=== PATIENT | male | born 1955 | race Caucasian/White ===

== ENCOUNTER 2022-03-12 14:03 | Outpatient (CLI) | payer BC, SELFPAY ==
[2022-03-12 11:39] LABS: Albumin* 4.4 g/dL (3.3-5.0); Chloride* 101 mmol/L (96-114); Potassium* 4.1 mmol/L (3.6-5.1); Sodium* 137 mmol/L (135-149)
[2022-03-12 11:41] LABS: Carbon Dioxide* 30 mmol/L (20-32); Cholesterol* 196 mg/dL (90-199); Creatinine* 0.8 mg/dL (0.5-1.5); Estimated Glomerular Filt Rate 98 ml/min
[2022-03-12 11:42] LABS: Alanine Aminotransferase* 23 U/L (4-50); Alkaline Phosphatase* 58 U/L (40-150); Aspartate Amino Transferase* 27 U/L (12-35); Bilirubin Total* 0.8 mg/dL (0.1-1.5); Blood Urea Nitrogen* 16 mg/dL (7-30); Glucose* 99 mg/dL (60-115); HDL Cholesterol* 80 mg/dL (>=40); LDL Cholesterol Calculated 100 mg/dL (<100); Triglycerides* 82 mg/dL (40-149)
[2022-03-12 12:11] LABS: PSA Screen* 1.65 ng/mL (0.10-4.00)
== END 2022-03-12 14:04 | disposition home or self-care (01) ==
PROVIDERS: PCP Internal Medicine; Visit Provider Internal Medicine
DX: Z00.00 Encounter for general adult medical examination without abnormal findings (principal); E78.5 Hyperlipidemia, unspecified; Z12.5 Encounter for screening for malignant neoplasm of prostate
CPT/HCPCS: 80053; 80061; 84153

== ENCOUNTER 2022-12-10 07:14 | Outpatient (CLI) | payer BC, SELFPAY ==
--- NOTE | 2022-12-10 07:55 | W.ANESCHARGE ---
Anesthesia Charges Start Date/Time Anesthesia Start Date: 12/10/22 Anesthesia Start Time: 07:55 Stop Date/Time Anesthesia Stop Date: 12/10/22 Anesthesia Stop Time: 08:35
--- NOTE | 2022-12-10 08:40 | W.ANESCHARGE ---
Anesthesia Charges Start Date/Time Anesthesia Start Date: 12/10/22 Anesthesia Start Time: 07:55 Stop Date/Time Anesthesia Stop Date: 12/10/22 Anesthesia Stop Time: 08:35
== END 2022-12-10 07:15 | disposition home or self-care (01) ==
PROVIDERS: PCP Internal Medicine; Visit Provider Internal Medicine
DX: Z12.11 Encounter for screening for malignant neoplasm of colon (principal); K57.30 Diverticulosis of large intestine without perforation or abscess without bleeding; K63.5 Polyp of colon; Z86.010 Personal history of colon polyps
CPT/HCPCS: 00811; 45380; 88305; J2704

== ENCOUNTER 2023-03-14 17:45 | Outpatient (CLI) | payer BC, SELFPAY ==
--- NOTE | 2023-03-14 18:00 | CRLHL7_ITS ---
For Patients: As a result of the Century Cures Act, medical imaging exams and procedure reports are released immediately into your electronic medical record. You may view this report before your referring provider. If you have questions, please contact your health care provider. INDICATION: Right leg pain and swelling. TECHNIQUE: Ultrasound venous duplex right lower extremity. Compression venous exam was performed using barnes-scale, color Doppler, and spectral Doppler analysis. COMPARISON: Right lower extremity Doppler venous ultrasound 01/29/2015.. FINDINGS: Deep veins: The eccentric intraluminal filling defects within the popliteal vein and greater saphenous vein. This is compatible with chronic nonocclusive thrombus within the right popliteal vein, greater saphenous vein, with thrombophlebitis of the medial varicose veins. The popliteal vein remains somewhat compressible and demonstrates flow on color Doppler imaging, however without normal response to augmentation. The right common femoral, proximal, mid and distal portions of the femoral vein remain compressible and demonstrate full compressibility with normal flow on color Doppler imaging. The left common femoral vein was imaged and was compressible for comparison and demonstrate normal flow on color Doppler imaging. No popliteal cyst. 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 Thrombophlebitis of the medial varicose veins of the calf. Dictated by Angel Disla MD @ 03/14/2023 8:42:58 PM (Electronically Signed)
== END 2023-03-14 17:46 | disposition home or self-care (01) ==
LOC: US 17:46
PROVIDERS: PCP Internal Medicine; Visit Provider Family Medicine
DX: M79.661 Pain in right lower leg (principal); I82.531 Chronic embolism and thrombosis of right popliteal vein; R22.41 Localized swelling, mass and lump, right lower limb
CPT/HCPCS: 93971

== ENCOUNTER 2023-07-08 07:51 | Outpatient (CLI) | payer MEDICARE, BC, SELFPAY | END 2023-07-08 07:52 | disposition home or self-care (01) | LOC: NFLDREF 13:25 | PROVIDERS: PCP Internal Medicine; Referring Provider Internal Medicine; Visit Provider Internal Medicine | DX: E78.5 Hyperlipidemia, unspecified (principal); Z13.228 Encounter for screening for other metabolic disorders; Z12.5 Encounter for screening for malignant neoplasm of prostate | CPT/HCPCS: 80053; 80061; G0103 ==

== ENCOUNTER 2024-08-24 07:30 | Outpatient (CLI) | payer MEDICARE, BC, SELFPAY | END 2024-08-24 07:31 | disposition home or self-care (01) | LOC: NFLDREF 08-31 00:34 | PROVIDERS: PCP Internal Medicine; Referring Provider Internal Medicine; Visit Provider Internal Medicine | DX: E78.5 Hyperlipidemia, unspecified (principal); Z12.5 Encounter for screening for malignant neoplasm of prostate | CPT/HCPCS: 80053; 80061; G0103 ==